=== PATIENT | male | born 1975 | race Hispanic/Latino ===

== ENCOUNTER → 2017-08-19 | Outpatient (CLI) | payer OTHER | LOC: M RAD 09:29 | DX: M25.511 Pain in right shoulder (principal) ==

== ENCOUNTER 2017-09-11 18:59 | Emergency (ER) | payer OTHER | END 2017-09-11 21:46 | disposition home or self-care (01) | LOC: M ED 18:59 | DX: S93.601A Unspecified sprain of right foot, initial encounter (principal); W21.9XXA Striking against or struck by unspecified sports equipment, initial encounter; Y92.9 Unspecified place or not applicable; Y93.66 Activity, soccer; Y99.9 Unspecified external cause status; R56.9 Unspecified convulsions; K21.9 Gastro-esophageal reflux disease without esophagitis; Z72.0 Tobacco use; Z79.899 Other long term (current) drug therapy | CPT/HCPCS: 73630 ==